=== PATIENT | female | born 1960 | race African-American/Black ===

== ENCOUNTER 2020-05-20 12:53 | Outpatient (CLI) | payer BC ==
--- NOTE | 2020-05-20 14:19 | RAD ---
4 views cervical spine: 05/20/2020 COMPARISON: None available HISTORY: Chronic neck pain FINDINGS: The open-mouth odontoid view and Fuchs view demonstrate an unremarkable dens and C1-2 artic ulation. There is straightening of the normal cervical lordosis. No prevertebral soft tissue swelling. No anterolisthesis or retrolisthesis is noted. There is mild mid cervical spine bilateral facet and uncovertebral osteophyte formation. Mild disc sp josefina narrowing and anterior osteophyte at C4-5. Mild disc space narrowing at C5-6. IMPRESSION: Cervical spine degenerative change. If there are radicular symptoms, MRI suggested.
--- NOTE | 2020-05-20 16:04 | RAD ---
LUMBAR SPINE 3 VIEWS: Date: 05/20/2020 HISTORY: Low back pain radiating to the left buttock. FINDINGS/IMPRESSION: There are degenerative changes in the lower lumbar spine. No fracture, subluxation, or bony destructi on is seen. There is mild dextroscoliosis of the lumbar spine. There are vascular calcifications. POS: [email or web address]
== END 2020-05-20 12:54 | disposition home or self-care (01) ==
LOC: SCSRAD 12:53
PROVIDERS: ATTEND Chiropractor
DX: M47.813 Spondylosis without myelopathy or radiculopathy, cervicothoracic region (principal); M47.817 Spondylosis without myelopathy or radiculopathy, lumbosacral region; M47.816 Spondylosis without myelopathy or radiculopathy, lumbar region; M41.86 Other forms of scoliosis, lumbar region; I70.90 Unspecified atherosclerosis; M47.812 Spondylosis without myelopathy or radiculopathy, cervical region
CPT/HCPCS: 72040; 72100

== ENCOUNTER 2021-11-09 11:10 | Outpatient (CLI) | payer BC | END 2021-11-09 11:11 | disposition home or self-care (01) | LOC: BICMAMMO 11:10 | PROVIDERS: ATTEND Family Medicine | DX: Z12.31 Encounter for screening mammogram for malignant neoplasm of breast (principal) | CPT/HCPCS: 77063; 77067 ==

== ENCOUNTER 2021-11-20 14:50 | Outpatient (CLI) | payer BC | END 2021-11-20 14:51 | disposition home or self-care (01) | LOC: BICULT 14:50 | PROVIDERS: ATTEND Family Medicine | DX: E04.1 Nontoxic single thyroid nodule (principal) | CPT/HCPCS: 76536 ==